=== PATIENT | female | born 1985 | race Native Hawaiian/Other Pacific Islander ===

== ENCOUNTER 2016-07-20 21:56 | Emergency (ER) | payer BC ==
[~2016-07-20] VITALS: Ht 162.6 cm; Wt 70.3 kg
[~2016-07-20 21:56] MED LIST: CIPRO500 MG PO; KETOROLAC15 MG/ML IM; NAPROSYN500 MG PO; OXYC5TAB53 PO; TAMS0.4C PO; ZOFRAN8 MG PO; [UNRECOGNIZED DRUG - OTHER]
[2016-07-20] MEDS ORDERED: LISI5TAB10 PO (22:10)
[2016-07-20] MEDS ORDERED: CLON0.1T16 PO (22:11)
[2016-07-20 22:44] LABS: PLATELET COUNT 241 K/uL (152-353)
[2016-07-20 22:55] LABS: POTASSIUM 3.3 mmol/L (3.6-5.2); SODIUM 136 mmol/L (136-145)
== END 2016-07-20 23:51 | disposition home or self-care (01) ==
LOC: ED 21:56
PROVIDERS: Emergency Medicine
DX: I10 Essential (primary) hypertension (principal)
CPT/HCPCS: 80053; 81000; 81025; 85027; 96372; 99283; J2550

== ENCOUNTER 2020-07-09 14:51 | Outpatient (CLI) | payer OTHER ==
[~2020-07-09 14:51] MED LIST changes: +CLON0.1T16 PO; +LISI5TAB10 PO
== END 2020-07-09 20:10 | disposition home or self-care (01) ==
LOC: RAD 14:51
PROVIDERS: ATTEND Nurse Practitioner Family
DX: R05 Cough (principal); R06.02 Shortness of breath

== ENCOUNTER 2021-06-11 16:33 | Outpatient (CLI) | payer OTHER | END 2021-06-11 19:04 | disposition home or self-care (01) | LOC: RAD 16:33 | PROVIDERS: ATTEND Nurse Practitioner Family | DX: J32.9 Chronic sinusitis, unspecified (principal); R05.9 Cough, unspecified ==